=== PATIENT | male | born 1970 | race Caucasian/White ===

== ENCOUNTER 2019-09-16 15:02 | Emergency (ER) | payer MEDICARE ==
[~2019-09-16] VITALS: Ht 182.9 cm; Wt 110.0 kg
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
[2019-09-16 16:06] LABS: BASOPHILS # (AUTO) 0.04 x10^3/uL (0-0.1); BASOPHILS % (AUTO) 1 % (0-1); EOSINOPHILS # (AUTO) 0.06 x10^3/uL (0-0.4); EOSINOPHILS % (AUTO) 1 % (1-7); LYMPHOCYTES # (AUTO) 1.03 x10^3/uL (1-3.4); LYMPHOCYTES % (AUTO) 19 % (22-44); MD NO; MEAN CORPUSCULAR HEMOGLOBIN 29.7 pg (27.5-34.5); MEAN CORPUSCULAR HGB CONC 33.4 g/dL (33.2-36.2); MEAN CORPUSCULAR VOLUME 88.8 fL (81-97); MEAN PLATELET VOLUME 9.3 fL (7.4-10.4); MONOCYTES % (AUTO) 9 % (2-9); NEUTROPHILS # (AUTO) 3.83 x10^3/uL (1.8-6.8); NEUTROPHILS % (AUTO) 70 % (42-75); PLATELET COUNT 222 x10^3/uL (130-400); RED BLOOD COUNT 5.12 x10^6/uL (4.38-5.82); RED CELL DISTRIBUTION WIDTH 14.2 % (9.4-14.8)
[2019-09-16 16:11] LABS: ALBUMIN 3.3 g/dL (3.4-5.0); ANION GAP 10 mmol/L (5-15); CALCIUM 9.3 mg/dL (8.5-10.1); CHLORIDE 108 mmol/L (98-107); CREATININE 1.73 mg/dL (0.7-1.3)
--- NOTE | 2019-09-16 16:20 | NUR ---
KATHY SENT TO THE LAB. PT CALM AND COOPERATIVE.
[2019-09-16 16:25] LABS: SALICYLATE LEVEL < 1.7 mg/dL (2.8-20.0)
--- NOTE | 2019-09-16 17:20 | NUR ---
REPORT TO HUNG ORO FOR LUNCH BREAK. PT RESTIN IN BED IN NAD. PT BEING OBSERVED BY SITTER.
[2019-09-16 17:32] LABS: AMPHETAMINE SCREEN, URINE Negative (Negative); BARBITURATE SCREEN, URINE Negative (Negative); BENZODIAZEPINE SCREEN, URINE Negative (Negative); CANNABINOID SCREEN, URINE Negative (Negative); COCAINE SCREEN, URINE Negative (Negative); METHADONE SCREEN, URINE Negative (Negative); OPIATE SCREEN, URINE Negative (Negative)
--- NOTE | 2019-09-16 18:15 | NUR ---
CHART UP FOR MD RECHECK. PT AWARE.
--- NOTE | 2019-09-16 18:36 | NUR ---
DR. MONTANEZ AT BEDSIDE.
--- NOTE | 2019-09-16 19:06 | NUR ---
SW AT BEDSIDE
--- NOTE | 2019-09-16 19:24 | NUR ---
PT GIVEN MEAL TRAY. PT TO BE DC'D.
[2019-09-16] MEDS ORDERED: MIRT45TA61 PO (20:48)
[2019-09-16] MEDS ORDERED: DONE10TA7 PO (20:48)
[2019-09-16] MEDS ORDERED: ESCI20TA PO (20:48)
[2019-09-16] MEDS ORDERED: ATOR20TA PO (20:48)
[2019-09-16] MEDS ORDERED: LEVO88TA4 PO (20:48)
[2019-09-16] MEDS ORDERED: TELM20TA PO (20:48)
[2019-09-16] MEDS ORDERED: ASPI-496 PO (20:48)
[2019-09-16] MEDS ORDERED: LORA-445 PO (20:48)
[2019-09-16] MEDS ORDERED: CARB1TAB2 PO (20:48)
[2019-09-16] MEDS ORDERED: RIVA10TA2 PO (20:48)
[2019-09-16 20:57] VITALS: BP 135/89
--- NOTE | 2019-09-16 21:49 | NUR ---
SPOKE TO RICKY RHONDA ([phone]), CM AT [facility]OST HOME, AND PT WOULD BE ACCEPTED BACK. TAXI VOUCHER PROVIDED TO PT TO GO BACK HOME.
== END 2019-09-16 21:24 | disposition home or self-care (01) ==
LOC: ED 16:45
DX: F41.1 Generalized anxiety disorder (principal); F39 Unspecified mood [affective] disorder
CPT/HCPCS: 36415; 80048; 80307; 82040; 85025; 99284